=== PATIENT | female | born 1975 | race Caucasian/White ===

== ENCOUNTER 2018-12-19 09:29 | Emergency (ER) | payer OTHER ==
[2018-12-19 09:40] VITALS: BP 119/70; PULSE 85; RESP 16; TEMP 98.2
[2018-12-19 10:39] LABS: Appearance,Urine Clear (Clear); Bilirubin,Urine Negative (Negative); Blood,Urine Negative (Negative); Color,Urine Light Yellow; Glucose,Urine (UA) Negative (Negative); Ketones,Urine Negative (Negative); Leukocyte Esterase,Urine Trace (Negative); Mucus,Urine Rare /hpf; Nitrite,Urine Negative (Negative); PH, Urine 5.5 (5.0-8.0); Protein,Urine Negative (Negative); RBC,Urine <1 /hpf (0-5); Specific Gravity,Urine 1.011 (1.001-1.035); Squamous Epithelial Cell,Urine 2 /hpf (0-4); Urobilinogen,Urine <2.0 mg/dL (<2.0); WBC,Urine 1 /hpf (0-5)
--- NOTE | 2018-12-19 11:31 | ED ---
General Adult HPI - General Chief complaint: Urogenital Stated complaint: UTI Time Seen by Provider: 12/19/18 10:00 Source: patient, RN notes reviewed Mode of arrival: ambulatory Limitations: no limitations - History of Present Illness Initial comments: 43-year-old female without any significant past medical history presents for genitourinary symptoms 3 weeks. Patient states she has burning with urination and vaginal discharge. States this has been ongoing for about 3 weeks. States there is some very minimal odor to vaginal discharge. States it is white in nature. States she has a history of yeast infections. Denies any fevers or chills. Denies any concern for STDs. Denies any pelvic pain or abdominal pain. No nausea vomiting diarrhea.Patient has no other complaints at this time including shortness of breath, chest pain, abdominal pain, nausea or vomiting, headache, or visual changes. - Related Data Previous Rx's Medication Instructions Recorded Fluconazole [Diflucan] 150 mg PO ONCE #1 tab 12/19/18 Allergies Allergy/AdvReac Type Severity Reaction Status Date / Time acetaminophen Allergy Anaphylaxis Verified 12/19/18 10:21 [From Darvocet-N] hazelnut Allergy Anaphylaxis Verified 12/19/18 10:21 propoxyphene Allergy Anaphylaxis Verified 12/19/18 10:21 [From Darvocet-N] walnut Allergy Anaphylaxis Verified 12/19/18 10:21 azithromycin AdvReac Nausea & Verified 12/19/18 10:21 Vomiting & Diarrhea BRAZIL NUT Allergy Anaphylaxis Uncoded 12/19/18 10:21 Review of Systems ROS Statement: Those systems with pertinent positive or pertinent negative responses have been documented in the HPI. ROS Other: All systems not noted in ROS Statement are negative. Past Medical History Additional Past Medical History / Comment(s): Raynauds History of Any Multi-Drug Resistant Organisms: None Reported Past Surgical History: Orthopedic Surgery Past Psychological History: Depression Smoking Status: Never smoker Past Alcohol Use History: Occasional Past Drug Use History: None Reported General Exam Limitations: no limitations General appearance: alert, in no apparent distress Head exam: Present: atraumatic, normocephalic, normal inspection Eye exam: Present: normal appearance, PERRL, EOMI. Absent: scleral icterus, conjunctival injection, periorbital swelling ENT exam: Present: normal exam, mucous membranes moist Neck exam: Present: normal inspection, full ROM. Absent: tenderness, meningis mus, lymphadenopathy Respiratory exam: Present: normal lung sounds bilaterally. Absent: respiratory distress, wheezes, rales, rhonchi, stridor Cardiovascular Exam: Present: regular rate, normal rhythm, normal heart sounds. Absent: systolic murmur, diastolic murmur, rubs, gallop, clicks GI/Abdominal exam: Present: soft, normal bowel sounds. Absent: distended, tenderness, guarding, rebound, rigid External exam: Present: normal external exam. Absent: erythema, swelling, lesions, lacerations, ecchymosis Speculum exam: Present: cervical discharge (White cervical discharge noted). Absent: erythema, vaginal discharge, vaginal bleeding, foreign body, tissue, laceration By manual exam: Present: normal by manual exam. Absent: cervical motion tenderness, adnexal tenderness, adnexal mass, uterine enlargement, uterine tenderness Neurological exam: Present: alert Course Vital Signs 12/19/18 09:36 Temperature 98.2 F Pulse Rate 85 Respiratory 16 Rate Blood Pressure 119/70 O2 Sat by Pulse 98 Oximetry Medical Decision Making - Medical Decision Making 43-year-old female presents to the emergency department for a chief complaint of vaginal discharge and dysuria. This has been ongoing about 3 weeks. No CVA tenderness or back pain. No abdominal pain or tenderness. No tenderness on pe lvic exam. However there is some white cervical discharge. Vitals are stable patient is afebrile. Urinalysis does not show any evidence of infection but will be cultured given patient's dysuria. I did offer to treat patient empirically for STDs that she prefers to wait for results. Genital culture pending. Patient will be treated for yeast infection as she frequently gets these while results are pending. She will return if she has any worsening symptoms. - Lab Data Lab Results 12/19/18 12/19/18 Range/Units 10:05 10:05 Urine Color Light Yellow Urine Appearance Clear (Clear) Urine pH 5.5 (5.0-8.0) Ur Specific [place] 1.011 (1.001-1.035) Urine Protein Negative (Negative) Urine Glucose (UA) Negative (Negative) Urine Ketones Negative (Negative) Urine Blood Negative (Negative) Urine Nitrite Negative (Negative) Urine Bilirubin Negative (Negative) Urine Urobilinogen <2.0 (<2.0) mg/dL Ur Leukocyte Esterase Trace H (Negative) Urine RBC <1 (0-5) /hpf Urine WBC 1 (0-5) /hpf Ur Squamous Epith Cells 2 (0-4) /hpf Urine Mucus Rare H (None) /hpf Urine HCG, Qual Not Detected (Not Detectd) Disposition Clinical Impression: Vaginal discharge Disposition: HOME SELF-CARE Condition: Good Instructions (If sedation given, give patient instructions): Vaginal Discharge (ED), Yeast Infection (ED) Additional Instructions: Please take Diflucan as prescribed. Follow-up with culture results in the next couple business days. Return to the emergency department if you have any wo rsening symptoms, back pain, fevers or chills, or abdominal pain. Prescriptions: Fluconazole [Diflucan] 150 mg PO ONCE #1 tab Is patient prescribed a controlled substance at d/c from ED?: No Referrals: Nonstaff,Physician [Primary Care Provider] - 1-2 days Minnie Villalobos MD [STAFF PHYSICIAN] - 1-2 days Time of Disposition: 11:29
[2018-12-20 14:41] LABS: N. gonorrhoeae,PCR Negative (Neg,Equiv); Neisseria Source Urine
[2018-12-20 14:45] LABS: C. trachomatis,PCR Negative (Neg,Equiv); Chlamydia trachomatis Source Urine
== END 2018-12-19 11:38 | disposition home or self-care (01) ==
LOC: EC 09:29
DX: N89.8 Other specified noninflammatory disorders of vagina (principal); R30.0 Dysuria; Z88.6 Allergy status to analgesic agent; Z88.5 Allergy status to narcotic agent; Z88.1 Allergy status to other antibiotic agents; Z91.018 Allergy to other foods
CPT/HCPCS: 81001; 81025; 87070; 87491; 87591; 87808; 99283

== ENCOUNTER 2021-01-27 11:47 | Emergency (ER) | payer OTHER ==
[2021-01-27 12:01] VITALS: BP 125/88; PULSE 87; RESP 18; TEMP 98.2
--- NOTE | 2021-01-27 12:22 | ED ---
General Adult HPI - General Chief complaint: Skin/Abscess/Foreign Body Stated complaint: rash Time Seen by Provider: 01/27/21 12:05 Source: patient, RN notes reviewed, old records reviewed Mode of arrival: ambulatory Limitations: no limitations - History of Present Illness Initial comments: 45-year-old female with facial rash and rash on her chest. She states this is been there for some time. She was previously treated by local announcer with doxycycline and spironolactone. She states this did completely clear up her rash. She is currently out of town and is requesting medication refill. Additionally she states that when she is placed on antibiotic she does have development of a yeast infection. She is requesting Diflucan. No fever. She did try some new hair products that she believes may have initiated the rash on her forehead. - Related Data Previous Rx's Medication Instructions Recorded Fluconazole [Diflucan] 150 mg PO ONCE #1 tab 12/19/18 Doxycycline [Vibramycin] 100 mg PO BID 10 Days #20 capsule 01/27/21 Fluconazole [Diflucan] 150 mg PO ONCE #1 tab 01/27/21 Mupirocin 2% Oint [Bactroban 2% 1 applic TOPICAL TID #22 gm 01/27/21 Oint] Spironolactone 12.5 mg PO DAILY 10 Days #5 tablet 01/27/21 metroNIDAZOLE [Flagyl] 500 mg PO BID 7 Days #14 tab 01/27/21 Allergies Allergy/AdvReac Type Severity Reaction Status Date / Time acetaminophen Allergy Anaphylaxis Verified 01/27/21 11:57 [From Darvocet-N] hazelnut Allergy Anaphylaxis Verified 01/27/21 11:57 propoxyphene Allergy Anaphylaxis Verified 01/27/21 11:57 [From Darvocet-N] walnut Allergy Anaphylaxis Verified 01/27/21 11:57 azithromycin AdvReac Nausea & Verified 01/27/21 11:57 Vomiting & Diarrhea BRAZIL NUT Allergy Anaphylaxis Uncoded 12/19/18 10:21 Review of Systems ROS Statement: Those systems with pertinent positive or pertinent negative responses have been documented in the HPI. ROS Other: All systems not noted in ROS Statement are negative. Past Medical History Additional Past Medical History / Comment(s): Raynauds History of Any Multi-Drug Resistant Organisms: None Reported Past Surgical History: Orthopedic Surgery Past Psychological History: Depression Smoking Status: Never smoker Past Alcohol Use History: Occasional Past Drug Use History: None Reported General Exam Limitations: no limitations General appearance: alert, in no apparent distress Head exam: Present: atraumatic, normocephalic Eye exam: Present: normal appearance, PERRL ENT exam: Present: normal exam Neck exam: Present: normal inspection. Absent: tenderness, meningismus Respiratory exam: Present: normal lung sounds bilaterally. Absent: respiratory distress, wheezes Cardiovascular Exam: Present: regular rate, normal rhythm GI/Abdominal exam: Present: soft. Absent: distended, tenderness, guarding Extremities exam: Present: normal inspection, normal capillary refill. Absent: pedal edema Neurological exam: Present: alert, oriented X3, CN II-XII intact. Absent: motor sensory deficit Psychiatric exam: Present: normal affect, normal mood Skin exam: Present: warm, erythema, other (Eczema throughout the face and upper chest with some acne as well. There is some crusted lesions on the forehead consistent with impetigo.) Course Vital Signs 01/27/21 11:57 Temperature 98.2 F Pulse Rate 87 Respiratory 18 Rate Blood Pressure 125/88 O2 Sat by Pulse 99 Oximetry Medical Decision Making - Medical Decision Making 29 sexual female presenting with facial rash, requesting refill of doxycycline and spironolactone which had previously been prescribed by her local announcer. Additionally she is requesting treatment for bacterial vaginosis and yeast infection. I did honor the patient's request. She has good follow-up at home which is [place]. Return parameters discussed. Disposition Clinical Impression: Eczema, Impetigo Disposition: HOME SELF-CARE Condition: Good Instructions (If sedation given, give patient instructions): Impetigo (ED), Eczema (ED), Yeast Infection (ED) Prescriptions: Mupirocin 2% Oint [Bactroban 2% Oint] 1 applic TOPICAL TID #22 gm Fluconazole [Diflucan] 150 mg PO ONCE #1 tab metroNIDAZOLE [Flagyl] 500 mg PO BID 7 Days #14 tab Spironolactone 12.5 mg PO DAILY 10 Days #5 tablet Doxycycline [Vibramycin] 100 mg PO BID 10 Days #20 capsule Is patient prescribed a controlled substance at d/c from ED?: No Referrals: None,Stated [Primary Care Provider] - 1-2 days Time of Disposition: 12:17
== END 2021-01-27 12:46 | disposition home or self-care (01) ==
LOC: EC 11:47
DX: L30.9 Dermatitis, unspecified (principal); L01.00 Impetigo, unspecified; Z88.6 Allergy status to analgesic agent; Z91.018 Allergy to other foods; Z88.1 Allergy status to other antibiotic agents
CPT/HCPCS: 99282

== ENCOUNTER → 2021-09-15 | Outpatient (CLI) | payer BC, OTHER ==
--- NOTE | 2021-09-16 07:12 | US ---
EXAMINATION TYPE: US pelvis complete transvag DATE OF EXAM: 09/15/2021 COMPARISON: NONE CLINICAL HISTORY: N93.9 Abnormal uterine bleeding. Abnormal pap. TECHNIQUE: Transabdominal (TA). Transabdominal sonographic images of the pelvis were acquired. Tra nsvaginal sonographic images were medically necessary to better assess the following anatomy: Endomet rium Date of LMP: 09/04/2021, EXAM MEASUREMENTS: Uterus: 9.8 x 5.8 x 4.9 cm Endometrial Stripe: 0.4 cm Right Ovary: 3.4 x 2.7 x 1.9 cm Left Ovary: 2.7 x 1.3 x 1.8 cm 1. Uterus: Anteverted Upper limits of normal in size. 2. Endometrium: wnl 3. Right Ovary: dominant follicle 4. Left Ovary: wnl 5. Bilateral Adnexa: wnl 6. Posterior cul-de-sac: no free fluid IMPRESSION: No significant abnormality appreciated.
== END | disposition home or self-care (01) ==
LOC: RADUSWWP 15:44
PROVIDERS: ATTEND Obstetrics & Gynecology
DX: N93.9 Abnormal uterine and vaginal bleeding, unspecified (principal)
CPT/HCPCS: 76830; 76856

== ENCOUNTER → 2022-12-11 | Outpatient (CLI) | payer MEDICAID | END | disposition home or self-care (01) | LOC: LABWHC1 07:32 | PROVIDERS: ATTEND Dermatology MOHS-Micrographic Surgery | DX: L70.8 Other acne (principal) | CPT/HCPCS: 36415; 84132 ==

== ENCOUNTER → 2022-12-12 | Outpatient (CLI) | payer MEDICAID | END | disposition home or self-care (01) | LOC: RADMAMWWP 07:10 | PROVIDERS: ATTEND Family Medicine | DX: Z53.9 Procedure and treatment not carried out, unspecified reason (principal) ==

== ENCOUNTER 2022-12-19 11:25 | Day surgery (SDC) | payer MEDICAID, OTHER ==
--- NOTE | 2022-12-13 08:21 | MM ---
Reason for Exam: Hx of breast augmentation, asymptomatic. Last mammogram was performed 7 year(s) and 1 month(s) ago. Patient History: Menarche at age 12. First Full-Term at age 18. Premenopausal. Bilateral Implants. Mother had breast cancer, age 53. Last menstrual period: 11/14/2022 Risk Values: Kami 5 year model risk: 1.7%. NCI Lifetime model risk: 16.5%. Prior Study Comparison: 12/11/2011 Right Diagnostic Mammogram, [facility]. 12/01/2015 Bilateral Screening Mammogram, [facility]. Tissue Density: There are scattered fibroglandular densities. Findings: Analyzed By CAD. There is no suspicious group of microcalcifications or new suspicious mass. Bilateral breast implants. Overall Assessment: Benign, BI-RAD 2 Management: Screening Mammogram of both breasts in [address] [facility] will attempt to contact patient to return for supplemental views and ultrasound if indicated. Patient should continue monthly self-breast exams. A clinical breast exam by your physician is recommended on an annual basis. This exam should not preclude additional follow-up of suspicious palpable abnormalities. Note on Kami scores and lifetime risk: 1. A Kami score greater than 3% is considered moderate risk. If this is the case, consider specialist referral to assess eligibility for a risk reducing agent. 2. If overall lifetime risk for the development of breast cancer is 20% or higher, the patient may qualify for future screening with alternating mammogram and breast MRI. Electronically signed and approved by: Ye Ford DO
[~2022-12-19 11:25] MED LIST: LACTATED RINGERS 1,000 ML IV SCH
[2022-12-19 11:57] VITALS: TEMP 97.5
[2022-12-19] MEDS ORDERED: PROPOFOL 10 MG/ML 20 ML VIAL IV ONE (12:19)
--- NOTE | 2022-12-19 12:24 | P.GSHP ---
History of Present Illness H&P Date: 12/19/22 Chief Complaint: Rectal bleeding 47-year-old female here for colonoscopy. Patient has some intermittent rectal bleeding in the last 8 months. Some discomfort at the anus as well. Says she feels hemorrhoids. No prior endoscopy. No family history of colon cancer. Past Medical History Past Medical History: GERD/Reflux, Osteoarthritis (OA) Additional Past Medical History / Comment(s): Raynauds, small amt rectal bleeding, left shoulder and knee pain. adult acne - uses spiranoclactone.and flagyl cream History of Any Multi-Drug Resistant Organisms: None Reported Past Surgical History: Orthopedic Surgery Additional Past Surgical History / Comment(s): colonoscopy, bunion surgery. Past Anesthesia/Blood Transfusion Reactions: No Reported Reaction Smoking Status: Never smoker - Past Family History Mother Family Medical History: Cancer Additional Family Medical History / Comment(s): breast cancer Medications and Allergies Home Medications Medication Instructions Recorded Confirmed Type Ibuprofen [Motrin Ib] 400 mg PO DIRECTED PRN 12/14/22 12/14/22 History Norethindrone [Ortho Micronor] 0.35 mg PO DAILY 12/14/22 12/19/22 History Spironolactone 75 mg PO DAILY 12/14/22 12/19/22 History Unk Multi Vitamin 1 tab PO DAILY 12/14/22 12/14/22 History Unk Probiotic 1 tab PO DAILY 12/14/22 12/14/22 History buPROPion HCL [Wellbutrin XL] 150 mg PO 1800 12/14/22 12/19/22 History metroNIDAZOLE 0.75% CREAM 1 applic TOPICAL DAILY 12/14/22 12/19/22 History [Metrocream 0.75%] Allergies Allergy/AdvReac Type Severity Reaction Status Date / Time acetaminophen Allergy Nausea & Verified 12/19/22 11:41 [From Darvocet-N] Vomiting hazelnut Allergy Anaphylaxis Verified 12/19/22 11:41 propoxyphene Allergy Nausea & Verified 12/19/22 11:41 [From Darvocet-N] Vomiting walnut Allergy Anaphylaxis Verified 12/19/22 11:41 azithromycin AdvReac Nausea & Verified 12/19/22 11:41 Vomiting & Diarrhea BRAZIL NUT Allergy Anaphylaxis Uncoded 12/19/22 11:41 Surgical - Exam Vital Signs Temp Pulse Resp BP Pulse Ox 97.5 F L 95 16 137/84 97 12/19/22 11:53 12/19/22 11:53 12/19/22 11:53 12/19/22 11:53 12/19/22 11:53 Physical exam: General: Well-developed, well-nourished HEENT: Normocephalic, sclerae nonicteric Abdomen: Nontender, nondistended Extremities: No edema Neuro: Alert and oriented Assessment and Plan (1) Rectal bleeding Narrative/Plan: Will proceed with colonoscopy at this time. Current Visit: Yes Status: Acute Code(s): K62.5 - HEMORRHAGE OF ANUS AND RECTUM SNOMED Code(s): 09451927
--- NOTE | 2022-12-19 12:36 | P.PCN ---
Date of Procedure: 12/19/22 Procedure(s) Performed: PREOPERATIVE DIAGNOSIS: Rectal bleeding POSTOPERATIVE DIAGNOSIS: Normal exam PROCEDURE: Colonoscopy ANESTHESIA: MAC SURGEON: Isauro Hayward M.D. SPECIMENS: None ENDOSCOPIC PROCEDURE: The patient was placed on the endoscopy table in the left decubitus position. The Olympus colonoscope was inserted into the anus and passed under direct visualization to the base of the cecum. The appendiceal orifice was visualized. From that point the scope was slowly withdrawn inspecting all surfaces carefully. There were no neoplastic inflammatory or polypoid lesions throughout the cecum, ascending, transverse, descending, sigmoid and rectum. There was no visible diverticulosis noted. Digital rectal examination was normal. External evaluation of the anus was normal. No obvious fissure or hemorrhoids were seen. There was a small linear area of skin inflammation in the midline that may have represented a source of bleeding with wiping. Barrier cream may be helpful. The patient was taken to the recovery room in stable condition per anesthesia guidelines. RECOMMENDATIONS: Resume diet. Repeat colonoscopy 10 years. Consider barrier cream or mild perianal skin irritation that may have been source of recent bleeding.
[2022-12-19 13:09] VITALS: BP 134/83; PULSE 70; RESP 20
== END 2022-12-19 13:27 ==
LOC: ORWHC2ENDO 11:25
PROVIDERS: ATTEND Surgery
DX: K62.5 Hemorrhage of anus and rectum (principal); K21.9 Gastro-esophageal reflux disease without esophagitis; M19.90 Unspecified osteoarthritis, unspecified site; F32.A Depression, unspecified; I73.00 Raynaud's syndrome without gangrene; Z91.018 Allergy to other foods; Z88.1 Allergy status to other antibiotic agents; Z88.8 Allergy status to other drugs, medicaments and biological substances; Z80.3 Family history of malignant neoplasm of breast; Z88.6 Allergy status to analgesic agent; Z79.899 Other long term (current) drug therapy
CPT/HCPCS: 81025; 77067; 77063; 45378; J2704

== ENCOUNTER → 2023-03-14 | Outpatient (CLI) | payer MEDICAID, OTHER ==
[2023-03-14 15:08] LABS: Basophils # (A) 0.07 X 10*3/uL (0.00-0.10); Eosinophils # (A) 0.39 X 10*3/uL (0.04-0.35); Eosinophils % (A) 5.8 %; HCT 42.8 % (37.2-46.3); HGB 14.2 g/dL (12.0-15.0); Lymphocytes # (A) 2.21 X 10*3/uL (0.90-5.00); Lymphocytes % (A) 33.1 %; MCH 30.5 pg (27.0-32.0); MCHC 33.2 g/dL (32.0-37.0); MCV 91.8 FL (80.0-97.0); Mean Platelet Volume 10.1 FL (9.5-12.2); Monocytes # (A) 0.54 X 10*3/uL (0.20-1.00); Monocytes % (A) 8.1 %; NRBC Per 100 WBC 0 X 10*3/uL (0.00-0.01); Neutrophils # (A) 3.45 X 10*3/uL (1.80-7.70); Neutrophils % (A) 51.7 %; Platelet Count 399 X 10*3/uL (140-440); RBC 4.66 X 10*6/uL (4.10-5.20); RDW 13.2 % (11.5-14.5); WBC 6.68 X 10*3/uL (4.50-10.00)
[2023-03-15 10:45] LABS: IgG Subclass 1 638.1 mg/dL (382.40-928.60); IgG Subclass 2 458.9 mg/dL (241.80-700.30); IgG Subclass 3 41.4 mg/dL (21.82-176.00); IgG Subclass 4 38.2 mg/dL (3.92-86.40)
== END | disposition home or self-care (01) ==
LOC: LABWHC1 10:16
PROVIDERS: ATTEND Internal Medicine
DX: R53.83 Other fatigue (principal)
CPT/HCPCS: 36415; 82784; 82787; 85025

== ENCOUNTER → 2023-05-16 | Outpatient (CLI) | payer MEDICAID ==
--- NOTE | 2023-05-16 16:43 | US ---
EXAMINATION TYPE: US pelvis complete transvag DATE OF EXAM: 05/16/2023 COMPARISON: NONE CLINICAL INDICATION: Female, 47 years old with history of R10.2 PELVIC AND PERINEAL PAIN N93.9 ABNORM AL UTER; heavy periods, pt is considering ablation TECHNIQUE: Transvaginal (TV) and Transabdominal (TA) . Transabdominal sonographic images of the pel vis were acquired. Transvaginal sonographic images were medically necessary to better assess the fol lowing anatomy: Endometrial stripe EXAM MEASUREMENTS: Uterus: 9.1 x 4.5 x 5.7 cm Endometrial Stripe: 0.4 cm Right Ovary: 3.7 x 2.2 x 2.5 cm Left Ovary: 3.9 x 1.7 x 2.6 cm 1. Uterus: Anteverted uterine body somewhat heterogeneous in echopattern on TV imaging ?bulky 2. Endometrium: wnl 3. Right Ovary: seen with a 2.3cm simple cyst 4. Left Ovary: wnl 5. Bilateral Adnexa: wnl 6. Posterior cul-de-sac: wnl IMPRESSION: 1. Endometrium within normal limits for thickness. 2. Heterogenous echotexture could represent underlying adenomyosis. Consider MRI for evaluation.
== END | disposition home or self-care (01) ==
LOC: RADUSWWP 14:03
PROVIDERS: ATTEND Obstetrics & Gynecology
DX: N85.8 Other specified noninflammatory disorders of uterus (principal); N93.9 Abnormal uterine and vaginal bleeding, unspecified; N92.0 Excessive and frequent menstruation with regular cycle; R10.2 Pelvic and perineal pain
CPT/HCPCS: 76830; 76856

== ENCOUNTER → 2024-01-09 | Outpatient (CLI) | payer MEDICAID | END | disposition home or self-care (01) | LOC: LABWHC1 07:54 | PROVIDERS: ATTEND Obstetrics & Gynecology | CPT/HCPCS: 36415; 84132 ==

== ENCOUNTER → 2024-06-16 | Outpatient (CLI) | payer MEDICAID ==
[2024-06-16 10:50] LABS: ALT 15 U/L (8-44); AST 21 U/L (13-35); Albumin 4.3 g/dL (3.8-4.9); Albumin/Globulin Ratio 1.54 Ratio (1.60-3.17); Alkaline Phosphatase 61 U/L (41-126); Blood Urea Nitrogen 10.8 mg/dL (9.0-27.0); Calcium 9.6 mg/dL (8.7-10.3); Carbon Dioxide 24.8 mmol/L (21.6-31.8); Chloride 104 mmol/L (96-109); Chol/HDL Ratio 3.05 Ratio; Estradiol <20.0 pg/mL; Globulin 2.8 g/dL (1.6-3.3); Glucose 107 mg/dL (70-110); LDL Cholesterol,Calculated 92.8 mg/dL (0.0-131.0); Magnesium 1.9 mg/dL (1.5-2.4); Potassium 4.2 mmol/L (3.5-5.5); Rheumatoid Factor, Qnt <15 IU/mL (0-15); Sodium 140 mmol/L (135-145); Total Bilirubin 0.3 mg/dL (0.3-1.2); Total Protein 7.1 g/dL (6.2-8.2); VLDL Calculation 11.42 mg/dL (5.00-40.00)
[2024-06-16 10:59] LABS: Basophils # (A) 0.09 X 10*3/uL (0.00-0.10); Basophils % (A) 1.4 %; Eosinophils # (A) 0.49 X 10*3/uL (0.04-0.35); Eosinophils % (A) 7.6 %; HCT 41.1 % (37.2-46.3); HGB 13.4 g/dL (12.0-15.0); Lymphocytes # (A) 1.36 X 10*3/uL (0.90-5.00); MCHC 32.6 g/dL (32.0-37.0); MCV 91.9 FL (80.0-97.0); Mean Platelet Volume 10.3 FL (9.5-12.2); Monocytes # (A) 0.56 X 10*3/uL (0.20-1.00); Monocytes % (A) 8.7 %; NRBC Per 100 WBC 0 X 10*3/uL (0.00-0.01); Neutrophils # (A) 3.93 X 10*3/uL (1.80-7.70); Neutrophils % (A) 60.7 %; Platelet Count 423 X 10*3/uL (140-440); RBC 4.47 X 10*6/uL (4.10-5.20); RDW 13.2 % (11.5-14.5); WBC 6.47 X 10*3/uL (4.50-10.00)
[2024-06-16 11:01] LABS: Follicle Stimulating Hormone 42.8 mIU/mL; Luteinizing Hormone 26.4 mIU/mL
[2024-06-16 13:57] LABS: Cyclic Citrull Pep IgG Unit <1.5 U/mL (<=3.9); Cyclic Citrullinated Pep IgG Negative
== END | disposition home or self-care (01) ==
LOC: LABWHC1 07:54
PROVIDERS: ATTEND Internal Medicine
DX: I73.00 Raynaud's syndrome without gangrene (principal); K21.9 Gastro-esophageal reflux disease without esophagitis; F41.9 Anxiety disorder, unspecified; N95.1 Menopausal and female climacteric states; L70.0 Acne vulgaris
CPT/HCPCS: 36415; 80053; 80061; 82306; 82670; 83001; 83002; 83036; 83735; 84144; 84403; 84443; 85025; 86038; 86200; 86431